=== PATIENT | female | born 2000 | race Two or more races ===

== ENCOUNTER 2023-06-16 00:09 | Emergency (ER) | payer MEDICAID ==
[~2023-06-16] VITALS: Ht 162.6 cm; Wt 140.6 kg
[2023-06-16] MEDS ORDERED: SODIUM CHLORIDE 0.9% 1,000 ML IV ONE (01:45)
[2023-06-16 02:43] LABS: Basophils # (auto) 0 10 ^3/uL (0-0.2); Basophils % (auto) 0.3 % (0.0-2.0); Eosinophils # (auto) 0 10 ^3/uL (0-0.8); Eosinophils % (auto) 0.1 % (0.0-7.0); Hematocrit 37.3 % (36.0-46.0); Hemoglobin 12.2 g/dL (12.2-16.2); Lymphocytes # (auto) 1.6 10 ^3/uL (0.4-5.4); Lymphocytes % (auto) 13.6 % (10.0-50.0); Mean Corpuscular Hemoglobin 29.2 pg (28.0-32.0); Mean Corpuscular Hgb Conc. 32.8 g/dL (32.0-36.0); Monocytes # (auto) 0.6 10 ^3/uL (0-1.3); Monocytes % (auto) 5.1 % (0.0-12.0); Neutrophils # (auto) 9.6 10 ^3/uL (1.6-8.6); Neutrophils % (auto) 80.9 % (37.0-80.0); Red Blood Cells 4.19 10^6/uL (4.0-5.20); Red Cell Distribution Width 14.5 % (11.8-14.3); White Blood Cell 11.9 10^3/uL (4.4-10.8)
[2023-06-16 02:49] VITALS: BP 141/88; PULSE 110; RESP 20; TEMP 98.1; O2SAT 97
[2023-06-16 02:52] LABS: Albumin 3.3 g/dL (3.4-5.0); BUN/Creatinine Ratio 9.3 (10.0-20.0); Calcium 8.5 mg/dL (8.5-10.1); Potassium 3.9 mmol/L (3.5-5.1)
[2023-06-16 02:55] LABS: Bilirubin, Total 0.3 mg/dL (0.2-1.0); Total Protein 7.6 g/dL (6.4-8.2)
[2023-06-16 03:56] LABS: Urine Bacteria NONE SEEN /hpf (None Seen); Urine Blood 1+ /uL (Negative); Urine Mucus FEW (None Seen); Urine Specific Gravity 1.022 (1.001-1.035); Urine WBC 93 /hpf (0 - 5); Urine WBC Clumps PRESENT /hpf (None Seen)
[2023-06-16] MEDS ORDERED: CIPR-173 PO (05:56)
[2023-06-16] MEDS ORDERED: MET500T PO (05:56)
[2023-06-16] MEDS ORDERED: CIPROFLOXACIN 400MG/200ML 200 ML IV ONE (06:00)
[2023-06-16] MEDS ORDERED: LACTATED RINGER'S 2,000 ML IV ONE (06:00)
[2023-06-16] MEDS ORDERED: metroNIDAZOLE 500MG/100ML 100 ML IV ONE (06:00)
[2023-06-16] MEDS ORDERED: metroNIDAZOLE 500 MG TAB PO ONE (06:15)
[2023-06-16] MEDS ORDERED: CIPROFLOXACIN HCL 500 MG TAB PO ONE (06:15)
== END 2023-06-16 06:15 | disposition home or self-care (01) ==
LOC: ER 00:09
DX: K52.9 Noninfective gastroenteritis and colitis, unspecified (principal); N39.0 Urinary tract infection, site not specified; Z88.0 Allergy status to penicillin
CPT/HCPCS: 36415; 74176; 80053; 81001; 83690; 85025; 96360; 99284; J7030